=== PATIENT | female | born 1985 | race Asian ===

== ENCOUNTER 2020-01-03 19:27 | Emergency (ER) | payer OTHER ==
[~2020-01-03] VITALS: Ht 154.9 cm; Wt 50.9 kg
[2020-01-03] MEDS ORDERED: KETOROLAC TROMETHAMINE 60 MG/2 ML VIAL IM ONE (20:30)
[2020-01-03 21:28] VITALS: BP 131/90
== END 2020-01-03 21:31 | disposition home or self-care (01) ==
LOC: EMS 19:27
DX: M25.511 Pain in right shoulder (principal); M54.6 Pain in thoracic spine; Z91.010 Allergy to peanuts; V49.40XA Driver injured in collision with unspecified motor vehicles in traffic accident, initial encounter; Y93.89 Activity, other specified; Y92.89 Other specified places as the place of occurrence of the external cause; Y99.8 Other external cause status
CPT/HCPCS: 96372; 99283; J1885

== ENCOUNTER 2023-04-18 15:07 | Emergency (ER) | payer OTHER ==
[~2023-04-18] VITALS: Ht 154.9 cm; Wt 54.5 kg
[2023-04-18] MEDS ORDERED: TraMADol HCL 50 MG TABLET PO ONE (17:00)
[2023-04-18 17:42] LABS: APPEARANCE,URINE CLEAR (CLEAR); BILIRUBIN,URINE NEGATIVE (NEGATIVE); GLUCOSE, URINE (UA) NEGATIVE (NEGATIVE); KETONES,URINE NEGATIVE (NEGATIVE); LEUKOCYTE ESTERASE ,URINE NEGATIVE (NEGATIVE); NITRATE,URINE NEGATIVE (NEGATIVE); OCCULT BLOOD,URINE TRACE (NEGATIVE); PH,URINE 5.5 (5.0-8.0); PROTEIN,URINE NEGATIVE (NEGATIVE); SPECIFIC GRAVITIY, URINE 1.006 (1.003-1.030); UROBILINOGEN,URINE <=1.0 mg/dL (<=1.0)
[2023-04-18 17:52] LABS: BACTERIA,URINE None Seen /HPF (None Seen); RBC,URINE 0-2 /HPF (0-2); SQUAMOUS EPITHELIAL CELL,UR Few /LPF (None Seen); WBC,URINE 0-2 /HPF (0-5)
[2023-04-18] MEDS ORDERED: CYCL-448 PO (18:46)
[2023-04-18] MEDS ORDERED: LIDO700A15 TP (18:46)
[2023-04-18 18:48] VITALS: BP 128/79
== END 2023-04-18 18:56 | disposition home or self-care (01) ==
LOC: EMS 15:08
DX: S13.4XXA Sprain of ligaments of cervical spine, initial encounter (principal); S49.91XA Unspecified injury of right shoulder and upper arm, initial encounter; Z91.010 Allergy to peanuts; V89.2XXA Person injured in unspecified motor-vehicle accident, traffic, initial encounter; Y93.89 Activity, other specified; Y92.89 Other specified places as the place of occurrence of the external cause; Y99.8 Other external cause status
CPT/HCPCS: 72040; 81001; 99284; 73030-TC; Z7502; Z7610

== ENCOUNTER 2025-10-10 13:38 | Emergency (ER) | payer OTHER ==
[~2025-10-10] VITALS: Ht 154.9 cm; Wt 54.0 kg
[~2025-10-10 13:38] MED LIST: CYCL-448 PO; LIDO-57 TP
[2025-10-10 14:28] VITALS: TEMP 97.9
[2025-10-10] MEDS: ACETAMINOPHEN 500 MG TABLET PO ONE (16:11)
[2025-10-10] MEDS: IBUPROFEN 600 MG TABLET PO ONE (16:12)
[2025-10-10] MEDS: LIDOCAINE 5% TRANSDERMAL PATCH TD ONE (16:13)
[2025-10-10 16:26] VITALS: BP 128/83; PULSE 71; RESP 18; O2SAT 100
== END 2025-10-10 17:17 | disposition home or self-care (01) ==
LOC: EMS 13:52
DX: M54.50 Low back pain, unspecified (principal); G89.29 Other chronic pain; Z79.899 Other long term (current) drug therapy; Z91.010 Allergy to peanuts; V89.2XXS Person injured in unspecified motor-vehicle accident, traffic, sequela
CPT/HCPCS: 72100; 99283